=== PATIENT | female | born 1995 | race Caucasian/White ===

== ENCOUNTER 2020-08-28 17:43 | Outpatient (REF) | payer OTHER, SELFPAY | END 2020-08-28 17:44 | disposition home or self-care (01) | LOC: HO.LAB 17:43 | PROVIDERS: Visit Provider Internal Medicine | DX: Z20.828 Contact with and (suspected) exposure to other viral communicable diseases (principal) | CPT/HCPCS: C9803; U0003 ==

== ENCOUNTER 2023-07-05 08:46 | Emergency (ER) | payer OTHER, SELFPAY ==
[2023-07-05 09:04] VITALS: BP 117/75; PULSE 68; RESP 17; TEMP 36.4; O2SAT 100; BMI 24.4
--- NOTE | 2023-07-05 09:50 | ED_ITS ---
HPI - General Adult General Chief complaint: General Medical Stated complaint: Thyroid cancer-feels close to syncope Time Seen by Provider: 07/05/23 09:16 Source: patient Mode of arrival: ambulatory Limitations: no limitations History of Present Illness HPI narrative: Lightheaded and weak for the past week, today was worse. She had thyroidectomy for metastatic thyroid cancer Onset (ago): week(s) Severity: mild Related Data Allergies Allergy/AdvReac Type Severity Reaction Status Date / Time No Known Allergies Allergy Unverified 06/20/20 19:03 [No Known Allergies*] Review of Systems 2 Review of Systems: Yes all other systems are reviewed and are negative Neurologic: Denies Sensory deficit (Neuro) [facility] Past Medical History Medical History Sepsis Thyroid cancer Surgical History S/P thyroidectomy History of surgery on lower extremity Social History Social History Smoked in Last 30 Days: No Use of substances other than those prescribed or required for medical reasons: No Advance Directives: No Patient : No Physical Exam ED Vital Signs: Vital Signs - 24 hr 07/05/23 09:04 Temperature 97.6 F Pulse Rate 68 Respiratory Rate 17 Blood Pressure 117/75 Pulse Oximetry 100 Oxygen Delivery Method Room Air BMI result Body Mass Index 24.4 Const General: healthy appearing Nutritional Appearance: average body habitus Orientation/consciousness: oriented to person and patient oriented x3 Limitations: no limitations HENMT Head: Yes normal to inspection Ears: external ears normal General nose exam: Normal external nose present Mouth: Normal oral and palatal mucosa present and oropharynx normal Throat: Yes posterior oropharynx normal Eyes General: appearance normal, both eyes and all related structures Neck Neck: Yes normal visual inspection Chest Chest palpation & inspection: normal inspection of the chest Resp Auscultation: clear to auscultation bilaterally Cardio Jugular venous distension: no JVD Rate: regular rate Rhythm: regular rhythm Heart sounds: S1 normal heart sound present and S2 normal heart sound present GI Inspection: Yes normal to inspection Palpation (GI): Soft to palpation, nontender and No hepatosplenomegaly present Auscultation: normal bowel sounds General: Yes no CVA tenderness Back/Spine/Pelvis Back: no CVA tenderness Skin General skin exam: no rashes or lesions noted Neuro General: oriented to person and patient oriented x3 Cranial nerves: Yes CN's II-XII intact bilaterally Motor exam (neuro): 5/5 motor strength present throughout Sensory Exam: No Sensory deficit (Neuro) Extrem General: Yes normal to inspection Psych Appearance: grossly normal Course Reevaluation(s) Reevaluation #1: Patient severly hypothyroid. Will dc home for immediate follow up with endocrine Time: 11:05 Medications Administered Generic Name Dose Route Start Last Admin Trade Name Freq PRN Reason Stop Dose Admin Sodium Chloride 500 mls @ 250 mls/hr 07/05/23 10:00 07/05/23 10:07 Ns IVCONT 07/05/23 11:59 250 mls/hr .Q2H DAVID Administration Medical Decision Making Differential Diagnosis Differential Diagnoses: The differential diagnosis associated with the presentation includes (Hypocalcemia, hypomagnesemia, electrolyte disturbance, hypothyroidism) Admission/Observation Consideration of admission/observation: Escalation of care including admission/observation considered (upon arrival patient was considered for admission) Lab Data MDM Lab Attestation statement: I reviewed the patient's lab results. (of note was the very elevated TSH) 07/05/23 10:04 07/05/23 10:04 Labs: Lab Results 07/05/23 Range/Units 10:04 WBC 4.1 L (4.8-10.8) X10*3/uL RBC 4.70 (4.20-5.50) X10*6/uL Hgb 11.2 L (12.0-16.0) g/dl Hct 35.2 L (37.0-47.0) % MCV 74.9 L (80.0-98.0) fL MCH 23.8 L (27.0-33.0) pg MCHC 31.8 (31.0-35.0) g/dl RDW 14.5 (11.0-16.0) % Plt Count 144 L (160-400) X10*3/uL MPV 10.1 (9.4-12.3) fL Immature Gran % (Auto) 0.2 (0.0-0.4) % Neut % (Auto) 59.0 (45-73) % Lymph % (Auto) 33.8 (20-40) % [place] % (Auto) 5.8 (2-11) % Eos % (Auto) 0.7 (0-4) % Baso % (Auto) 0.5 (0-2) % Lymph # (Auto) 1.4 (1.2-4.9) X10*3/uL [place] # (Auto) 0.2 (0.1-1.2) X10*3/uL Eos # (Auto) 0.0 (0.0-0.4) X10*3/uL Baso # (Auto) 0.0 (0.0-0.2) X10*3/uL Abs Immat Gran (auto) 0.01 (0.00-0.03) X10*3/uL Absolute Neuts (auto) 2.4 (2.0-8.3) x10*3/uL Absolute Nucleated RBC 0.000 (0.0-0.012) X10*3/uL Nucleated RBC % (auto) 0.0 (0.0-0.2) /100WBC Sodium 141 (135-145) mmol/L Potassium 4.3 (3.3-5.1) mmol/L Chloride 109 H (96-108) mmol/L Carbon Dioxide 25 (22-29) mmol/L Anion Gap 11 L (12-20) BUN 13 (9-16) mg/dL Creatinine 0.87 (0.5-1.4) mg/dL Estim Creat Clear Calc 81.0 Estimated GFR > 60 Random Glucose 80 (60-115) mg/dL Calcium 9.3 (8.4-10.2) mg/dL Phosphorus 3.7 (2.7-4.5) mg/dL Magnesium 2.3 (1.6-2.6) mg/dL TSH 98.94 H (0.32-4.0) uIU/mL Prescription Management I considered prescription management with: Other (calcium replacement not indicated) Chronic Conditions Patient?s care impacted by: Cancer Discharge Plan Discharge Clinical Impression: Hypothyroidism Qualifiers: Hypothyroidism type: postoperative Qualified Code(s): E89.0 - Postprocedural hypothyroidism Patient Disposition: Home, Self-Care Instructions: Hypothyroidism (ED) Referrals: Rossy Morejon DO [Primary Care Provider] - 2 days
[2023-07-05] MEDS: 0.9 % Sodium Chloride 500 ML 250 ML IVCONT (10:07)
[2023-07-05 10:08] LABS: MANUAL DIFF FLAG NO
[2023-07-05 10:10] LABS: Basophils Percent Auto 0.5 % (0-2); Eosinophils Percent Auto 0.7 % (0-4); Hematocrit 35.2 % (37.0-47.0); Hemoglobin 11.2 g/dl (12.0-16.0); Imm Gran Abs Auto 0.01 X10*3/uL (0.00-0.03); Imm Gran Pct Auto 0.2 % (0.0-0.4); Lymphocytes Absolute Auto 1.4 X10*3/uL (1.2-4.9); Lymphocytes Percent Auto 33.8 % (20-40); Mean Corpuscular HGB Conc 31.8 g/dl (31.0-35.0); Mean Corpuscular Hemoglobin 23.8 pg (27.0-33.0); Mean Corpuscular Volume 74.9 fL (80.0-98.0); Mean Platelet Volume 10.1 fL (9.4-12.3); Monocytes Absolute Auto 0.2 X10*3/uL (0.1-1.2); Monocytes Percent Auto 5.8 % (2-11); Neutrophils Absolute Auto 2.4 x10*3/uL (2.0-8.3); Platelet Count 144 X10*3/uL (160-400); Red Cell Distribution Width 14.5 % (11.0-16.0); White Blood Count 4.1 X10*3/uL (4.8-10.8)
[2023-07-05 10:32] LABS: Anion Gap 11 (12-20); Blood Urea Nitrogen 13 mg/dL (9-16); Calcium 9.3 mg/dL (8.4-10.2); Carbon Dioxide 25 mmol/L (22-29); Chloride 109 mmol/L (96-108); Estimated Glomerular Filt Rate > 60; Glucose Random 80 mg/dL (60-115); Magnesium 2.3 mg/dL (1.6-2.6); Phosphorus 3.7 mg/dL (2.7-4.5); Potassium 4.3 mmol/L (3.3-5.1); Sodium 141 mmol/L (135-145)
[2023-07-05 10:46] LABS: TSH reflex Free T4 98.94 uIU/mL (0.32-4.0)
--- NOTE | 2023-07-05 10:50 | PC.NURSE ---
patient a&ox3,notably pale,iv inserted, labs drawn, air sampling and monitoring applied- pt nsr on monitor, pt c/o 11/13 eye pain- denies history of migraines, states she felt like she was spinning and felt faint while driving which brought her to this ed. pt medicated per order, call basurto within reach, will continue to monitor.
[2023-07-05 12:11] LABS: Free T4 (Free Thyroxine) 0.42 ng/dL (0.71-1.85)
== END 2023-07-05 11:43 | disposition home or self-care (01) ==
PROVIDERS: Emergency Provider Emergency Medicine; PCP Pediatrics
DX: E89.0 Postprocedural hypothyroidism (principal); R55 Syncope and collapse; R11.2 Nausea with vomiting, unspecified; Z79.899 Other long term (current) drug therapy
CPT/HCPCS: 36415; 80048; 83735; 84100; 84439; 84443; 85025; 96360; 96361; 99284

== ENCOUNTER 2023-08-17 08:42 | Emergency (ER) | payer OTHER, SELFPAY ==
[2023-08-17 08:47] VITALS: BP 118/85; PULSE 87; RESP 18; TEMP 36.6; O2SAT 98; BMI 23.8
[2023-08-17 09:09] VITALS: BP 112/81; PULSE 94; RESP 18; TEMP 36.6; O2SAT 100
--- NOTE | 2023-08-17 09:18 | ED_ITS ---
HPI - General Chief complaint: Vaginal Bleeding Stated complaint: Vag Bleed Light Headed 5-6 Wks Preg Time Seen by Provider: 08/17/23 09:06 Source: patient Mode of arrival: ambulatory Limitations: no limitations History of Present Illness HPI Narrative: Patient states she took a test it was positive 10 days ago. She started to bleed 4 days ago with passing clots, she then developed fever nausea and vomiting. Comes in today to get checked out, states that her bleeding has completely stopped Complaint: vaginal bleeding Onset (ago): day(s) Pain Consistency: now resolved Related Data Allergies Allergy/AdvReac Type Severity Reaction Status Date / Time No Known Allergies Allergy Verified 08/17/23 08:47 [No Known Allergies*] Review of Systems 2 Review of Systems: Yes all other systems are reviewed and are negative Neurologic: Denies Sensory deficit (Neuro) [facility] Past Medical History Medical History Sepsis Thyroid cancer Surgical History S/P thyroidectomy History of surgery on lower extremity Social History Social History Alcohol intake: former Smoked in Last 30 Days: No Use of substances other than those prescribed or required for medical reasons: No Advance Directives: Yes Advance Directives Information Provided: Yes Advance Directives on File: No Patient : Yes Physical Exam 2 Vital Signs: Vital Signs: Last Vital Signs Temp 97.8 F 08/17/23 09:09 Pulse 75 08/17/23 12:32 Resp 16 08/17/23 12:32 BP 101/72 08/17/23 12:32 Pulse Ox 100 08/17/23 12:32 O2 Del Method Room Air 08/17/23 12:32 BMI result Body Mass Index 23.8 Const: Other: very pale appearing Nutritional Appearance: average body habitus Orientation/consciousness: oriented to person and patient oriented x3 Limitations: no limitations HEENT: Head: Yes normal to inspection Ears: external ears normal General nose exam: Normal external nose present Mouth: Normal oral and palatal mucosa present and oropharynx normal Throat: Yes posterior oropharynx normal Eyes: Other: conjunctiva not pale General: appearance normal, both eyes and all related structures Neck: Other: supple Neck: Yes normal visual inspection Chest: Chest palpation & inspection: normal inspection of the chest Resp: Auscultation: clear to auscultation bilaterally Cardio: Jugular venous distension: no JVD Rate: regular rate Rhythm: r egular rhythm Heart sounds: S1 normal heart sound present and S2 normal heart sound present GI: Inspection: Yes normal to inspection Palpation (GI): Soft to palpation, nontender and No hepatosplenomegaly present Auscultation: normal bowel sounds : General: Yes no CVA tenderness Back/Spine/Pelvis: Back: no CVA tenderness Skin: General skin exam: no rashes or lesions noted Neuro: General: oriented to person and patient oriented x3 Cranial nerves: Yes CN's II-XII intact bilaterally Motor exam (neuro): 5/5 motor strength present throughout Sensory Exam: No Sensory deficit (Neuro) Extrem: General: Yes normal to inspection Psych: Appearance: grossly normal Course Reevaluation(s) Reevaluation #1: Patient states bleeding has stopped, HCG 595 will not perform US at this time will have patient follow up with PMD in 3 days and recheck HCG. No source of infection found Time: 10:19 Medications Administered Discontinued Medications Generic Name Dose Route Start Last Admin Trade Name Freq PRN Reason Stop Dose Admin Sodium Chloride 1,000 mls @ 500 mls/hr 08/17/23 09:30 08/17/23 12:18 Ns IVCONT 08/17/23 11:29 Infused .Q2H DAVID Infusion Ondansetron HCl 4 mg 08/17/23 09:16 08/17/23 09:41 Ondansetron Hcl 4 Mg/2 Ml Vial IVPUSH 08/17/23 09:17 4 mg ONCE ONE Administration Medical Decision Making Differential Diagnosis Differential Diagnoses: The differential diagnosis associated with the presentation includes (miscarriage, ectopic , UTI, fever) Admission/Observation Consideration of admission/observation: Escalation of care including admission/observation considered (upon arrival patient was considered for admission) Lab Data MDM Lab Attestation statement: I reviewed the patient's lab results. (anemia is her baseline, urine is contaminated) 08/17/23 09:24 08/17/23 09:28 Labs: Lab Results 08/17/23 08/17/23 08/17/23 Range/Units 09:18 09:24 09:28 WBC 4.6 L (4.8-10.8) X10*3/uL RBC 4.48 (4.20-5.50) X10*6/uL Hgb 10.7 L (12.0-16.0) g/dl Hct 33.4 L (37.0-47.0) % MCV 74.6 L (80.0-98.0) fL MCH 23.9 L (27.0-33.0) pg MCHC 32.0 (31.0-35.0) g/dl RDW 15.0 (11.0-16.0) % Plt Count 218 D (160-400) X10*3/uL MPV 8.9 L (9.4-12.3) fL Immature Gran % (Auto) 0.2 (0.0-0.4) % Neut % (Auto) 63.6 (45-73) % Lymph % (Auto) 31.5 (20-40) % [place] % (Auto) 3.9 (2-11) % Eos % (Auto) 0.4 (0-4) % Baso % (Auto) 0.4 (0-2) % Lymph # (Auto) 1.5 (1.2-4.9) X10*3/uL [place] # (Auto) 0.2 (0.1-1.2) X10*3/uL Eos # (Auto) 0.0 (0.0-0.4) X10*3/uL Baso # (Auto) 0.0 (0.0-0.2) X10*3/uL Abs Immat Gran (auto) 0.01 (0.00-0.03) X10*3/uL Absolute Neuts (auto) 3.0 (2.0-8.3) x10*3/uL Absolute Nucleated RBC 0.000 (0.0-0.012) X10*3/uL Nucleated RBC % (auto) 0.0 (0.0-0.2) /100WBC Sodium 138 (135-145) mmol/L Potassium 3.5 (3.3-5.1) mmol/L Chloride 105 (96-108) mmol/L Carbon Dioxide 26 (22-29) mmol/L Anion Gap 11 L (12-20) BUN 10 (9-16) mg/dL Creatinine 0.79 (0.5-1.4) mg/dL Estim Creat Clear Calc 89.3 Estimated GFR > 60 Random Glucose 111 (60-115) mg/dL Calcium 8.4 D (8.4-10.2) mg/dL Beta HCG, Quant 595 mIU/mL Urine Color Urine Appearance Urine pH (5.0-9.0) Ur Specific [place] (1.005-1.025) Urine Protein (Neg-Trace) mg/dL Urine Glucose (UA) (Negative) mg/dL Urine Ketones (Negative) mg/dL Urine Blood (Negative) Urine Nitrite (Negative) Ur Leukocyte Esterase (Negative) Urine RBC (0-2) /HPF Urine WBC (0-5) /HPF Ur Squamous Epith Cells (0-2) /HPF Urine Bacteria (None Seen) Hyaline Casts (0-2) /LPF Blood Type A Positive Antibody Screen NEGATIVE 08/17/23 Range/Units 11:19 WBC (4.8-10.8) X10*3/uL RBC (4.20-5.50) X10*6/uL Hgb (12.0-16.0) g/dl Hct (37.0-47.0) % MCV (80.0-98.0) fL MCH (27.0-33.0) pg MCHC (31.0-35.0) g/dl RDW (11.0-16.0) % Plt Count (160-400) X10*3/uL MPV (9.4-12.3) fL Immature Gran % (Auto) (0.0-0.4) % Neut % (Auto) (45-73) % Lymph % (Auto) (20-40) % [place] % (Auto) (2-11) % Eos % (Auto) (0-4) % Baso % (Auto) (0-2) % Lymph # (Auto) (1.2-4.9) X10*3/uL [place] # (Auto) (0.1-1.2) X10*3/uL Eos # (Auto) (0.0-0.4) X10*3/uL Baso # (Auto) (0.0-0.2) X10*3/uL Abs Immat Gran (auto) (0.00-0.03) X10*3/uL Absolute Neuts (auto) (2.0-8.3) x10*3/uL Absolute Nucleated RBC (0.0-0.012) X10*3/uL Nucleated RBC % (auto) (0.0-0.2) /100WBC Sodium (135-145) mmol/L Potassium (3.3-5.1) mmol/L Chloride (96-108) mmol/L Carbon Dioxide (22-29) mmol/L Anion Gap (12-20) BUN (9-16) mg/dL Creatinine (0.5-1.4) mg/dL Estim Creat Clear Calc Estimated GFR Random Glucose (60-115) mg/dL Calcium (8.4-10.2) mg/dL Beta HCG, Quant mIU/mL Urine Color Dark Yellow Urine Appearance Cloudy Urine pH 5.5 (5.0-9.0) Ur Specific [place] >= 1.030 H (1.005-1.025) Urine Protein Trace (Neg-Trace) mg/dL Urine Glucose (UA) Negative (Negative) mg/dL Urine Ketones Trace (Negative) mg/dL Urine Blood Large (3+) H (Negative) Urine Nitrite Negative (Negative) Ur Leukocyte Esterase Trace H (Negative) Urine RBC >20 H (0-2) /HPF Urine WBC 6-10 H (0-5) /HPF Ur Squamous Epith Cells 0-2 (0-2) /HPF Urine Bacteria None Seen (None Seen) Hyaline Casts 0-2 (0-2) /LPF Blood Type Antibody Screen Tests considered The following testing was considered but not selected: Pelvic Us is considered but HCG only 595 and the likelihood of seeing a viable with that low hcg is unlikely Prescription Management I considered prescription management with: Antibiotic (No uti, comtaminated sample) Chronic Conditions Patient?s care impacted by: Other (thyroid cancer) Discharge Plan Discharge Clinical Impression: Threatened Patient Disposition: Home, Self-Care Instructions: Threatened Miscarriage (ED) Additional Instructions: Must get a repeat blood HCG in 3 days Referrals: Rossy Morejon DO [Primary Care Provider] - 3 days
[2023-08-17 09:34] LABS: MANUAL DIFF FLAG NO
[2023-08-17 09:37] LABS: Basophils Percent Auto 0.4 % (0-2); Eosinophils Percent Auto 0.4 % (0-4); Hematocrit 33.4 % (37.0-47.0); Hemoglobin 10.7 g/dl (12.0-16.0); Imm Gran Abs Auto 0.01 X10*3/uL (0.00-0.03); Imm Gran Pct Auto 0.2 % (0.0-0.4); Lymphocytes Absolute Auto 1.5 X10*3/uL (1.2-4.9); Lymphocytes Percent Auto 31.5 % (20-40); Mean Corpuscular Hemoglobin 23.9 pg (27.0-33.0); Mean Corpuscular Volume 74.6 fL (80.0-98.0); Mean Platelet Volume 8.9 fL (9.4-12.3); Monocytes Absolute Auto 0.2 X10*3/uL (0.1-1.2); Monocytes Percent Auto 3.9 % (2-11); Neutrophils Percent Auto 63.6 % (45-73); Platelet Count 218 X10*3/uL (160-400); Red Blood Count 4.48 X10*6/uL (4.20-5.50); White Blood Count 4.6 X10*3/uL (4.8-10.8)
[2023-08-17] MEDS: ondansetron HCL 4 MG/2 ML VIAL IVPUSH (09:41)
[2023-08-17] MEDS: 0.9 % Sodium Chloride 1,000 ML 500 ML IVCONT (09:41)
--- NOTE | 2023-08-17 09:44 | PC.NURSE ---
Pt states she has been experiencing vaginal bleedings X's 1 week with associated N/V and lower abdominal pain. Pt states she is about 5-6 weeks ; is unplanned as pt is receiving radiation therapy for thyroid cancer. Incidentally, pt discovered during an appointment with oncologist ( test required before radiation therapy). Pt states she does have a hx of preeclampsia with previous . Initially when bleeding started, Pt states she was going through a bunch of pads ; currently, pt has only gone through 1 pad since this morning, which was completely saturated. Pt states she is experiencing 3/10 pain within lower abdomen. Pt is currently feeling nauseated; provider notified and orders placed.
[2023-08-17 09:49] LABS: Anion Gap 11 (12-20); Blood Urea Nitrogen 10 mg/dL (9-16); Calcium 8.4 mg/dL (8.4-10.2); Carbon Dioxide 26 mmol/L (22-29); Chloride 105 mmol/L (96-108); Creatinine Clr Calc Pharmacy 89.3; Estimated Glomerular Filt Rate > 60; Glucose Random 111 mg/dL (60-115); Potassium 3.5 mmol/L (3.3-5.1); Sodium 138 mmol/L (135-145)
[2023-08-17 09:57] LABS: HCG Quantitative 595 mIU/mL
[2023-08-17 10:30] VITALS: BP 101/61; PULSE 70; RESP 16; O2SAT 100
[2023-08-17 11:30] LABS: Appearance Urine Cloudy; Color Urine Dark Yellow; Glucose Urine UA Negative (Negative); Leukocyte Esterase Urine Trace (Negative); Nitrite Urine Negative (Negative); PH 5.5 (5.0-9.0); Specific Gravity - Urine >= 1.030 (1.005-1.025); UMIC TRIGGER UACC YES; Urine Blood Large (3+) (Negative); Urine Ketones Trace mg/dL (Negative); Urine Protein Trace mg/dL (Neg-Trace)
[2023-08-17 11:31] LABS: Bacteria Urine None Seen (None Seen); Hyaline Casts Urine 0-2 /LPF (0-2); RBC Urine >20 /HPF (0-2); Squamous Epithelial Cell Urine 0-2 /HPF (0-2); UACC Culture Trigger YES
[2023-08-17 12:32] VITALS: BP 101/72; PULSE 75; RESP 16; O2SAT 100
== END 2023-08-17 14:05 | disposition home or self-care (01) ==
PROVIDERS: Emergency Provider Emergency Medicine; PCP Pediatrics
DX: O20.0 Threatened abortion (principal); C73 Malignant neoplasm of thyroid gland; R10.30 Lower abdominal pain, unspecified; Z92.3 Personal history of irradiation
CPT/HCPCS: 36415; 80048; 81001; 84702; 85025; 86850; 86900; 86901; 87086; 87147; 96361; 96374; 99284; 99285; J2405

== ENCOUNTER 2023-11-30 12:36 | Inpatient (IN) | payer OTHER, SELFPAY ==
--- NOTE | ~2023-11-30 | CT_ITS ---
EXAMINATION: CT HEAD WITHOUT CONTRAST CLINICAL INFORMATION: Fall. Head trauma. COMPARISON: Previous head CT June 2017 TECHNIQUE: Contiguous axial imaging was performed from the skull base to vertex without intravenous administration of contrast. This CT examination was performed using dose optimization techniques as appropriate, variously including the following: *Automated exposure control *Adjustment of mA and/or kV according to patient size (this includes techniques or standardized protocols for targeted exams where dose is matched to indication/reason for exam; i.e. extremities or head) *Use of iterative reconstruction technique DLP: 548 mGy-cm FINDINGS: Stable probable arachnoid cyst adjacent to the right frontal lobe. There is no other evidence of an extra-axial collection. There is no evidence of intra or extra-axial hemorrhage. Ventricles and extra-axial CSF spaces are appropriate. Eller-white matter differentiation is normal. No mass, mass effect or infarct. Bone windows is normal. No skull fracture. Visualized paranasal sinuses, mastoid air cells and middle ears are clear. CT/CT head/brain wo IV con IMPRESSION: No acute findings.
--- NOTE | ~2023-11-30 | CT_ITS ---
EXAMINATION: CT CERVICAL SPINE WITHOUT CONTRAST CLINICAL INFORMATION: Fall. Neck pain. COMPARISON: None available. TECHNIQUE: Axial images through the cervical spine without IV contrast. Sagittal and coronal reconstructions on the technologist's workstation. This CT examination was performed using dose optimization techniques as appropriate, variously including the following: *Automated exposure control *Adjustment of mA and/or kV according to patient size (this includes techniques or standardized protocols for targeted exams where dose is matched to indication/reason for exam; i.e. extremities or head) *Use of iterative reconstruction technique DLP: 254 mGy-cm FINDINGS: Bone alignment is normal. No fracture or dislocation. Normal disc spaces. Prevertebral soft tissues are normal. Surgical clips in the right neck. The thyroid gland appears to have been removed. CT/CT cervical spine wo IV con IMPRESSION: No fracture or dislocation. Fleischner guidelines were followed.
--- NOTE | ~2023-11-30 | CT_ITS ---
EXAMINATION: CT ANGIOGRAM OF THE CHEST WITH AND WITHOUT CONTRAST (CT PULMONARY ANGIOGRAM FOR PE) CLINICAL INFORMATION: Reason for Exam syncope hx of malignancy COMPARISON: None available. TECHNIQUE: Prior to contrast administration, noncontrast localization images were obtained. Subsequently, multidetector volumetric imaging was performed from the thoracic inlet to below the diaphragms following the administration of 85 mL Omnipaque 350 intravenous contrast. No contrast reaction reported Sagittal, coronal, and MIP oblique sagittal reformatted images were obtained on the CT workstation, uploaded to PACS, and reviewed. This CT examination was performed using dose optimization techniques as appropriate, variously including the following: *Automated exposure control *Adjustment of mA and/or kV according to patient size (this includes techniques or standardized protocols for targeted exams where dose is matched to indication/reason for exam; i.e. extremities or head) *Use of iterative reconstruction technique Total exam dose-length product 255 mGy-cm FINDINGS: QUALITY OF STUDY/CONTRAST BOLUS: Satisfactory. PULMONARY ARTERIES: No pulmonary emboli. THORACIC AORTA: No aneurysm. LUNG: No focal consolidation, nodules or masses. PLEURA: No pleural effusion or pneumothorax. MEDIASTINUM: Normal heart size. No pericardial effusion. No hilar or mediastinal lymphadenopathy. No evidence of septal bowing or right heart strain. CORONARY ARTERY CALCIFICATION: None visualized on this study. CHEST WALL/AXILLA: No axillary or internal mammary lymphadenopathy. OSSEOUS STRUCTURES: No acute or suspicious osseous abnormality. UPPER ABDOMEN: Postsurgical changes from gastric sleeve. No reflux of contrast into the hepatic veins to suggest elevated right heart pressures. CT/CT angio chest PE protocol IMPRESSION: Unremarkable exam VTE: negative
--- NOTE | ~2023-11-30 | CT_ITS ---
EXAMINATION: CT ABDOMEN AND PELVIS WITH CONTRAST CLINICAL INFORMATION: Anemia. Rectal bleeding. Syncope. COMPARISON: Previous CT of the abdomen and pelvis February 2018 TECHNIQUE: Multidetector volumetric images were obtained from the superior aspect of the liver through the pubic symphysis following administration 85 mL of Omnipaque 350 intravenous contrast. Sagittal and coronal reformatted images were obtained on the technologist's workstation. Oral contrast: Yes This CT examination was performed using dose optimization techniques as appropriate, variously including the following: *Automated exposure control *Adjustment of mA and/or kV according to patient size (this includes techniques or standardized protocols for targeted exams where dose is matched to indication/reason for exam; i.e. extremities or head) *Use of iterative reconstruction technique DLP: 519 mGy-cm FINDINGS: LUNG BASES: The visualized lung bases are unremarkable. LIVER, GALLBLADDER, AND BILIARY TREE: The liver is normal in size, shape, and attenuation. No focal hepatic lesion or biliary ductal dilatation is present. The gallbladder is unremarkable with no evidence of radiopaque gallstones, gallbladder wall thickening, or obvious pericholecystic inflammatory changes. PANCREAS: Unremarkable. SPLEEN: Small 1 cm cyst in the anterior spleen. Upper normal spleen size measuring centimeters. ADRENAL GLANDS: Unremarkable. KIDNEYS AND URETERS: The kidneys are normal in size, shape, and attenuation. No hydronephrosis, hydroureter, or calculi seen. Small cyst in the lower pole right kidney. No imaging follow-up recommended. No perinephric stranding. BLADDER: Unremarkable. GASTROINTESTINAL TRACT: Postsurgical changes from gastric sleeve. The small and large bowel are unremarkable. The appendix is unremarkable. ABDOMINAL WALL: No significant hernia is appreciated. LYMPH NODES: Small, small bowel mesentery and retroperitoneal lymph nodes. No enlarged lymph nodes. VASCULAR: Unremarkable. PELVIC VISCERA: Unremarkable. There is trace fluid in the pelvis. OSSEOUS STRUCTURES: Unremarkable. CT/CT abdomen pelvis w IV con IMPRESSION: No acute findings. Postsurgical changes from gastric sleeve. Fleischner guidelines were followed.
[2023-11-30 12:44] VITALS: BP 144/105; PULSE 91; RESP 18; TEMP 37.1; O2SAT 100; BMI 21.8
--- NOTE | 2023-11-30 12:45 | ED_ITS ---
HPI - General Adult General Chief complaint: Fall Stated complaint: Syncope Time Seen by Provider: 11/30/23 13:45 Source: patient Mode of arrival: ambulatory Limitations: no limitations History of Present Illness HPI narrative: 28-year-old female history of thyroid cancer s/p total thyroidectomy ( currently being treated w/ radioactive iodine last tx 10/22 at [facility] [place] and currently on levothyroxine & liothyronine) presents with a multiple syncopal episodes over the past 3 days, patient reports she is having spontaneous syncopal episodes, she reports she was seen at [facility] where they told her that she was slightly anemic and her platelets were low. Patient also is complaining of head and neck pain status post syncopal episode with head strike and loss of consciousness. Headche diffuse and severe. Patient's last syncopal episode was this morning. She states that today she syncopized and also hit her head. Reports subjective fevers two days ago. She is not on blood thinners. Denies CP, sob, n/v/d, abd pain, weakness, dizziness Related Data Allergies Allergy/AdvReac Type Severity Reaction Status Date / Time No Known Allergies Allergy Verified 11/30/23 12:48 [No Known Allergies*] Review of Systems 2 Review of Systems: Yes all other systems are reviewed and are negative PMFSH Past Medical History Attestation statement: The following information was validated with the patient. Source: old records reviewed and nursing notes reviewed Medical History Sepsis Thyroid cancer Surgical History S/P thyroidectomy History of surgery on lower extremity Social History Social History Alcohol intake: never Smoked in Last 30 Days: No Use of substances other than those prescribed or required for medical reasons: No Advance Directives: No Physical Exam ED Vital Signs: Vital Signs - 24 hr 11/30/23 12:44 11/30/23 14:02 11/30/23 14:02 Temperature 98.8 F Pulse Rate 91 75 81 Respiratory Rate 18 18 16 Blood Pressure 144/105 H 137/97 H 137/97 H Pulse Oximetry 100 100 Oxygen Delivery Method Room Air Room Air BMI result Body Mass Index 21.8 vss Appearance: Alert.? Oriented X3.? No acute distress.? Head: Normocephalic, atraumatic, no step-offs or deformities Eyes: Pupils equal, round and reactive to light.? Neck: Normal inspection.? Neck supple.?+ pain w/ palpation of L sternocleidomastoid muscle with overlying abrasion however no erythema or warmth. Negative Kernig and Brudzinski CVS: Normal heart rate and rhythm.? Pulses normal.? Respiratory: No respiratory distress.? Breath sounds normal.? Abdomen: Soft and nontender.? Skin: Skin warm and dry.? Pale skin color.? Normal skin turgor.? Extremities: No lower extremity edema.? No calf ttp. 5/5 strength to bilateral upper and lower extremities Neuro: Oriented X 3.? No motor deficit.? No sensory deficit. CN 2-12 intact . Negative Romberg and pronator drift. Normal [id number], [id number]. Course Course Course Narrative: This is a rapid medical exam: Additional HPI, ROS, PE not included below will be deferred to primary provider. Patient is a 28-year-old female with thyroid CA presenting to the ED after syncopal episode today. Patient states she had a fever on Wednesday, yesterday had syncopal episode, went to [facility], was told she was anemic and had low platelets but was d/c'd home. States after discharge she had an additional syncopal episode today with another head strike. Also complaining of left lateral neck pain. She was just treated for thyroid CA with radioactive iodine 1 month ago, but was told by her MD that her thyroid levels were back to normal range. Patient appears very pale in triage. She did not have any transfusions yesterday. She denies any hematochezia or melena. Plan: EKG, labs Reevaluation(s) Reevaluation #1: CBC leukopenia with a microcytic anemia, platelets 151, chemistry no acute findings requiring intervention. OBS stool negative. Flu/COVID/RSV negative. I did request records from [facility] still pending. Ct head, chest, abd/ pelvis pending. Time: 15:28 Reevaluation #2: Sign out to Jose Guadalupe pending imaging. Time: 15:51 Medical Decision Making Medical Decision Making MDM Narrative: 28-year-old female presents with multiple syncopal episodes now complaining of head and neck pain due to head strike loss of consciousness. Not on blood thinners. Will have racing secretary try to obtain records from [facility] with patient consent. Physical exam pain w/ palpation of L sternocleidomastoid muscle with overlying abrasion however no erythema or warmth. However no overt meningeal signs. NIH stroke scale 0. History and physical exam concerning for syncope will rule out orthostatic hypotension, electrolyte abnormalities, anemia. Will rule out metabolic derangements. Unlikely ACS, dissection. PE will be rule out due to patient hx. PERSAUD likely concussion will rule out ICH. Unlikely stroke based off exam. Unlikely meningitis and encephalitis no meningial sings on exam neck pain likely secondary to fall, overlying abrasion and discomfort with palpation of left sternocleidomastoid muscle Plan at this time labs, imaging. Differential Diagnosis Differential Diagnoses: The differential diagnosis associated with the presentation includes History and physical exam concerning for syncope will rule out orthostatic hypotension, electrolyte abnormalities, anemia. Will rule out metabolic derangements. Unlikely ACS, dissection. PE will be rule out due to patient hx. PERSAUD likely concussion will rule out ICH. Unlikely stroke based off exam. Unlikely meningitis and encephalitis no meningial sings on exam neck pain likely secondary to fall, overlying abrasion and discomfort with palpation of left sternocleidomastoid muscle Admission/Observation Consideration of admission/observation: Escalation of care including admission/observation considered Lab Data [facility] Lab Attestation statement: I reviewed the patient's lab results. 11/30/23 13:25 11/30/23 13:25 Labs: Lab Results 11/30/23 11/30/23 11/30/23 Range/Units 13:25 14:27 14:28 WBC 3.0 L (4.8-10.8) X10*3/uL RBC 4.35 (4.20-5.50) X10*6/uL Hgb 9.2 L (12.0-16.0) g/dl Hct 30.0 L (37.0-47.0) % MCV 69.0 L (80.0-98.0) fL MCH 21.1 L (27.0-33.0) pg MCHC 30.7 L (31.0-35.0) g/dl RDW 15.0 (11.0-16.0) % Plt Count 151 L D (160-400) X10*3/uL MPV 9.8 (9.4-12.3) fL Immature Gran % (Auto) 0.0 (0.0-0.4) % Neut % (Auto) 60.8 (45-73) % Lymph % (Auto) 26.8 (20-40) % [place] % (Auto) 10.7 (2-11) % Eos % (Auto) 1.0 (0-4) % Baso % (Auto) 0.7 (0-2) % Lymph # (Auto) 0.8 L (1.2-4.9) X10*3/uL [place] # (Auto) 0.3 (0.1-1.2) X10*3/uL Eos # (Auto) 0.0 (0.0-0.4) X10*3/uL Baso # (Auto) 0.0 (0.0-0.2) X10*3/uL Abs Immat Gran (auto) 0.00 (0.00-0.03) X10*3/uL Absolute Neuts (auto) 1.8 L (2.0-8.3) x10*3/uL Absolute Nucleated RBC 0.000 (0.0-0.012) X10*3/uL Nucleated RBC % (auto) 0.0 (0.0-0.2) /100WBC Sodium 141 (135-145) mmol/L Potassium 3.9 (3.3-5.1) mmol/L Chloride 110 H (96-108) mmol/L Carbon Dioxide 26 (22-29) mmol/L Anion Gap 9 L (12-20) BUN 13 (9-16) mg/dL Creatinine 0.71 (0.5-1.4) mg/dL Estim Creat Clear Calc 111.4 Estimated GFR > 60 Random Glucose 99 (60-115) mg/dL Calcium 9.1 D (8.4-10.2) mg/dL Total Bilirubin 0.4 (0.0-1.0) mg/dL AST 20 (5-31) U/L ALT 20 (0-31) U/L Alkaline Phosphatase 62 (39-117) U/L Total Protein 7.5 (6.5-8.0) g/dL Albumin 4.3 (3.5-5.0) g/dL Stool Occult Blood NEGATIVE (NEGATIVE) Influenza Type A (PCR) NEGATIVE (Negative) Influenza Type B (PCR) NEGATIVE (Negative) RSV RNA Qual (PCR) NEGATIVE (Negative) SARS-CoV-2 RNA (RT-PCR) NEGATIVE (Negative) Blood Type A Positive Antibody Screen NEGATIVE Critical Care Time Critical Care Time Critical Care Time: Yes Total Critical Care Time: 45 Attestation: I attest to this time spent taking care of the patient, obtaining history, physical, reviewing labs, imaging, speaking to my attending Discharge Plan Discharge Clinical Impression: Syncope, Microcytic anemia, Neck pain Patient Disposition: Still a Patient
--- NOTE | 2023-11-30 12:56 | ECG_ITS ---
Test Reason : syncope Blood Pressure : / mmHG Vent. Rate : 085 BPM Atrial Rate : 085 BPM P-R Int : 142 ms QRS Dur : 084 ms QT Int : 366 ms P-R-T Axes : 061 065 039 degrees QTc Int : 435 ms Normal sinus rhythm with sinus arrhythmia Normal EKG When compared with ECG of 09-JUN-2017 02:35, No significant change was found Referred By: Karla Rubio Electronically Signed By:DOREEN MORTENSEN
[2023-11-30 13:28] LABS: MANUAL DIFF FLAG NO
[2023-11-30 13:33] LABS: Basophils Percent Auto 0.7 % (0-2); Hemoglobin 9.2 g/dl (12.0-16.0); Lymphocytes Absolute Auto 0.8 X10*3/uL (1.2-4.9); Lymphocytes Percent Auto 26.8 % (20-40); Mean Corpuscular HGB Conc 30.7 g/dl (31.0-35.0); Mean Corpuscular Hemoglobin 21.1 pg (27.0-33.0); Mean Platelet Volume 9.8 fL (9.4-12.3); Monocytes Absolute Auto 0.3 X10*3/uL (0.1-1.2); Monocytes Percent Auto 10.7 % (2-11); Neutrophils Absolute Auto 1.8 x10*3/uL (2.0-8.3); Neutrophils Percent Auto 60.8 % (45-73); Platelet Count 151 X10*3/uL (160-400); Red Blood Count 4.35 X10*6/uL (4.20-5.50)
[2023-11-30 13:47] LABS: Alanine Aminotransferase 20 U/L (0-31); Albumin Level 4.3 g/dL (3.5-5.0); Alkaline Phosphatase 62 U/L (39-117); Anion Gap 9 (12-20); Aspartate Amino Transferase 20 U/L (5-31); Bilirubin Total 0.4 mg/dL (0.0-1.0); Blood Urea Nitrogen 13 mg/dL (9-16); Calcium 9.1 mg/dL (8.4-10.2); Carbon Dioxide 26 mmol/L (22-29); Chloride 110 mmol/L (96-108); Creatinine Clr Calc Pharmacy 111.4; Estimated Glomerular Filt Rate > 60; Glucose Random 99 mg/dL (60-115); Potassium 3.9 mmol/L (3.3-5.1); Sodium 141 mmol/L (135-145); Total Protein 7.5 g/dL (6.5-8.0)
[2023-11-30 14:02] VITALS: BP 137/97; PULSE 75; PULSE 81; RESP 16; RESP 18; O2SAT 100
[2023-11-30 14:42] LABS: OBS Int Ctl Valid YES; OBS1 NEGATIVE (NEGATIVE)
[2023-11-30 15:20] LABS: Influenza A PCR NEGATIVE (Negative); Influenza B PCR NEGATIVE (Negative); Resp Syncy Virus RNA Qual PCR NEGATIVE (Negative); SARS COV2 PCR INHOUSE NEGATIVE (Negative)
[2023-11-30 16:14] LABS: HCG Quantitative < 2 mIU/mL
[2023-11-30] MEDS: iohexoL 350 MG/ML 100 ML INFUS..BTL IV (16:35)
[2023-11-30] MEDS: 0.9 % Sodium Chloride 1,000 ML 999 ML IV (17:01)
[2023-11-30 17:21] LABS: TSH reflex Free T4 0.85 uIU/mL (0.32-4.0)
[2023-11-30 17:25] VITALS: BP 112/75; PULSE 66; RESP 14; TEMP 36.9; O2SAT 100
--- NOTE | 2023-11-30 17:26 | PC.NURSE ---
Patient stand by assisted to BR, denies any dizziness or weakness. NS bolus started as ordered, patient resting quietly on stretcher at this time
[2023-11-30 17:28] VITALS: BP 123/85; PULSE 81
[2023-11-30 17:29] VITALS: BP 120/84; PULSE 82
--- NOTE | 2023-11-30 18:21 | PM.IMHP ---
History of Present Illness Date of Service: 11/30/23 Chief Complaint: Syncope 28-year-old with past medical history significant for gastric sleeve surgery, thyroid cancer status post total thyroidectomy currently receiving radioactive iodine last treatment at [facility] and currently on levothyroxine and liothyronine presented to [facility] due to an episode of syncope yesterday and of fall today according to patient she had fever few days ago without associated sinus pressure, headache, or dizziness, yesterday she was putting something in the microwave, felt hot and tingly and then heard a Bang and was found herself in bed, she sustained injury to left side of chin and neck, she went to [facility] Emergency room and was noted to have anemia and low platelet count but since she was feeling better she was discharged home today she stood up fast from bed, question felt lightheaded and fell next to bed, without loss of consciousness or head injury, she denied prodromal symptoms of chest pain or dizziness, she denies episodes of hematemesis, no melena, no heavy periods she has been eating fairly well with good appetite but has been told by several friends and family that she looks very pale, she was on iron supplements in the past, recently her thyroid medications has been adjusted due to elevated TSH currently on 200 mcg of levothyroxine and twice daily levothyroxine wean, denies illicit drug use no heavy caffeine intake, no smoking, no alcohol, in the emergency room blood work showed hemoglobin 9.2, hematocrit 30, platelet of 151, TSH of 85, blood sugar 99 sodium 141, potassium 3.9 patient underwent extensive imaging study CT head unremarkable, CT cervical spine showed no fractures or dislocation, CT abdomen and pelvis showed no acute findings, CTA chest, showed no PE, no aneurysm, no focal consolidation, nodule or masses, orthostatic blood pressure is stable but patient noted to have elevated heart rate with standing and pancytopenia will admit for close monitoring and treatment. Review of Systems Review of Systems: General no headache no dizziness . CVS no chest pain, no palpitation. Respiratory no cough, no sob. Gastrointestinal no nausea, no vomiting, no abdominal pain no urgency, no frequency, no heavy periods Musculoskeletal left neck pain with difficulty in extension All other system reviewed and negative [facility] Medical History Sepsis Thyroid cancer Pertinent family history: Patient not aware of biological father, mother is healthy and alive and has no medical issues Surgical History S/P thyroidectomy History of surgery on lower extremity Social History Alcohol intake: never Patient Tobacco Use Status: Never used Tobacco Smoked in Last 30 Days: No Use of substances other than those prescribed or required for medical reasons: No Advance Directives: No Meds Allergies Allergy/AdvReac Type Severity Reaction Status Date / Time No Known Allergies Allergy Verified 11/30/23 12:48 [No Known Allergies*] Active Medications: Current Medications Acetaminophen (Acetaminophen 325 Mg Tablet) 650 mg PO Q6H PRN PRN Reason: Pain, Mild (Pain Scale 1-3) Al Hydroxide/Mg Hydroxide (Magnesium Hydrox/Alum Hydrox 30 Ml Oral.Susp) 30 ml PO Q4H PRN PRN Reason: Heartburn/Nausea Benzonatate (Benzonatate 100 Mg Capsule) 100 mg PO TID PRN PRN Reason: Cough Ondansetron HCl (Ondansetron Hcl 4 Mg/2 Ml Vial) 4 mg IVPUSH Q8H PRN PRN Reason: Nausea and Vomiting Sodium Chloride (0.9 % Sodium Chloride Flush 3 Ml Syringe) 3 ml IVFLUSH [facility] Medications Medication Instructions Recorded Confirmed Last Taken Type cephalexin 500 mg capsule 500 mg PO BID 11/30/23 11/30/23 Unknown History etonogestrel 0.12 mg-ethinyl 1 vag ring vaginal QMONTH 11/30/23 11/30/23 Unknown History estradiol 0.015 mg/24 hr vaginal ring ibuprofen 800 mg tablet 800 mg PO Q8H PRN moderate pain 11/30/23 11/30/23 Unknown History levothyroxine 200 mcg tablet 200 mcg PO DAILY 11/30/23 11/30/23 11/30/23 History liothyronine 5 mcg tablet 5 mcg PO BID 11/30/23 11/30/23 11/30/23 History multivitamin 1 tab PO DAILY 11/30/23 11/30/23 11/30/23 History Physical Exam Vital Signs and Narrative: Vital Signs: Last Vital Signs Temp 98.5 F 11/30/23 17:25 Pulse 82 11/30/23 17:29 Resp 14 11/30/23 17:25 BP 120/84 11/30/23 17:29 Pulse Ox 100 11/30/23 17:25 O2 Del Method Room Air 11/30/23 17:25 BMI result Body Mass Index 21.8 Const: Other: General awake alert x3, sitting in bed,in no acute distress. Anicteric sclera Neck tenderness/bruise left sternocleidomastoid muscle with mild swelling CVS regular rate rhythm, Respiratory lungs clear to auscultation, no respiratory distress, no wheeze, no rhonchi. Gastrointestinal abdomen soft, non tender, bowel sounds audible, no guarding , no rigidity. Extremities no edema. Neuro non focal Skin pallor Psych appropriate affect Results Labs 12/01/23 05:24 11/30/23 13:25 Labs: Laboratory Results - last 24 hr 11/30/23 11/30/23 11/30/23 13:25 14:27 14:28 MCV 69.0 L MCH 21.1 L MCHC 30.7 L RDW 15.0 Plt Count 151 L D MPV 9.8 Immature Gran % (Auto) 0.0 Neut % (Auto) 60.8 Lymph % (Auto) 26.8 Towner % (Auto) 10.7 Eos % (Auto) 1.0 Baso % (Auto) 0.7 Lymph # (Auto) 0.8 L Towner # (Auto) 0.3 Eos # (Auto) 0.0 Baso # (Auto) 0.0 Abs Immat Gran (auto) 0.00 Absolute Neuts (auto) 1.8 L Absolute Nucleated RBC 0.000 Nucleated RBC % (auto) 0.0 Anion Gap 9 L Estim Creat Clear Calc 111.4 Estimated GFR > 60 Random Glucose 99 Calcium 9.1 D Total Bilirubin 0.4 AST 20 ALT 20 Alkaline Phosphatase 62 Total Protein 7.5 Albumin 4.3 TSH 0.85 Beta HCG, Quant < 2 Stool Occult Blood NEGATIVE Influenza Type A (PCR) NEGATIVE Influenza Type B (PCR) NEGATIVE RSV RNA Qual (PCR) NEGATIVE SARS-CoV-2 RNA (RT-PCR) NEGATIVE Blood Type A Positive Antibody Screen NEGATIVE Imaging Radiologist's Impressions: Impressions Abdomen/Pelvis CT 11/30/23 16:57 IMPRESSION: No acute findings. Postsurgical changes from gastric sleeve. Fleischner guidelines were followed. Cervical Spine CT 11/30/23 16:57 IMPRESSION: No fracture or dislocation. Fleischner guidelines were followed. Chest CTA 11/30/23 16:57 IMPRESSION: Unremarkable exam VTE: negative Head CT 11/30/23 16:57 IMPRESSION: No acute findings. Assessment and Plan (1) Microcytic anemia: Status: Acute (2) Syncope: Status: Acute Plan 28-year-old female patient with past medical history significant for thyroid cancer status post thyroidectomy, receiving radioactive iodine at [facility] presented to [facility] after a syncopal episode, and a fall. Syncope/fall Question etiology anemia/less likely pots no orthostasis symptoms/no arrhythmias on tele monitor Normal CT head, normal C-spine, normal CTA chest and abdomen and pelvis Normal renal function, no evidence of infection, normal electrolytes and liver function Give IV fluids, monitor CBC, tele monitoring Follow orthostatic blood pressures. Chronic Pancytopenia/microcytic anemia. Will check iron studies/ferritin/checks stool guaiac Obtain respiratory viral pathogen No evidence of active bleed Musculoskeletal neck pain due to fall and injury will use Tylenol and oxycodone avoid Motrin due to anemia. History of thyroid cancer status post thyroidectomy normal TSH continue home dose of Synthroid and levothyroxine Code status full code DVT prophylaxis compression boots In my clinical judgment patient need to night inpatient hospitalization due to syncope, pancytopenia requiring further workup and expert consultation. Quality Stroke Does the patient have a stroke diagnosis?: No VTE Prior VTE?: No VTE Risk Level:: Medical - moderate - high VTE Device Contraindication: N/A - Device Ordered VTE Drug Contraindication: Treatment Not Indicated
[2023-11-30 18:40] LABS: Iron 13 mcg/dL (30-160); Percent Iron Saturation 4 % (15-50); Total Iron Binding Capacity 353 mcg/dL (228-428); Unsaturated Iron Binding 340 ug/dL
[2023-11-30 19:00] LABS: Ferritin 18 ng/mL (10-122)
--- NOTE | 2023-11-30 19:00 | PHA.MEDREC ---
Addendum entered by Leena Garcia RPh 11/30/23 19:11: Patient will have family bring in liothyronine Original Note: Pharmacy Consult ? Medication Reconciliation Pharmacy has completed the medication reconciliation. Confirmed medications with patient. Reports that she has not yet picked up Cephalexin 600mg BID. I left on med rec as it was prescribed yesterday.
[2023-11-30 19:06] VITALS: BP 129/95; PULSE 72; RESP 16; O2SAT 100
--- NOTE | 2023-11-30 19:35 | PC.NURSE ---
Patient placed on continuous tele, awaiting bed assigment. Resting comfortably on stretcher at this time.
--- NOTE | 2023-11-30 19:59 | PC.NURSE ---
PT C/O ONGOING HEADACHE, BILAT EAR PAIN. ALSO HAS A SECOND GUAIAC ORDERED. PER HOSPITALIST, SECOND GUAIAC NOT NEEDED, WASHROOM OPERATOR TO BE ADDING OXY PRN TO RXS.
[2023-11-30] MEDS: oxyCODONE HCl Immed Release 5 MG TABLET PO (20:52)
[2023-11-30] MEDS: TiZANidine HCL 4 MG TABLET PO (21:26)
[2023-11-30] MEDS: Fluticasone Propionate Nasal 16 GM SPRAY 2 SPRAY NOSTRIL-B (21:26)
--- NOTE | 2023-11-30 23:30 | PC.NURSE ---
Pt ca&ox4, no signs of distress. Pt in bed resting comfortably. Plan of care ongoing.
[2023-12-01] VITALS (11 sets, daily range): BP systolic 96–113; BP diastolic 52–71; PULSE 58–76; RESP 12–20; TEMP 36.3–36.8; O2SAT 97–99; BMI 23.8
[2023-12-01] MEDS: 0.9 % Sodium Chloride Flush 3 ML SYRINGE IVFLUSH ×3 (00:50→20:52)
[2023-12-01 06:00] LABS: Hematocrit 26.5 % (37.0-47.0); Hemoglobin 7.9 g/dl (12.0-16.0); Mean Corpuscular HGB Conc 29.8 g/dl (31.0-35.0); Mean Corpuscular Hemoglobin 21.2 pg (27.0-33.0); Mean Corpuscular Volume 71.2 fL (80.0-98.0); Mean Platelet Volume 9.8 fL (9.4-12.3); Platelet Count 123 X10*3/uL (160-400); Red Blood Count 3.72 X10*6/uL (4.20-5.50); Red Cell Distribution Width 14.9 % (11.0-16.0)
--- NOTE | 2023-12-01 07:27 | PC.NURSE ---
pt resting in bed with nad, no complaints,
--- NOTE | 2023-12-01 09:27 | PC.NURSE ---
asked md miller if consent obtained butch kinsey for blood as none seen in patient chart
[2023-12-01 09:28] LABS: Adenovirus PCR Not Detected (Not Detect.); Bordetella parapertussis PCR Not Detected (Not Detect.); Bordetella pertussis PCR Not Detected (Not Detect.); Chlamydia pneumoniae PCR Not Detected (Not Detect.); Coronavirus 229E PCR Not Detected (Not Detect.); Coronavirus HKU1 PCR Not Detected (Not Detect.); Coronavirus NL63 PCR Not Detected (Not Detect.); Coronavirus OC43 PCR Not Detected (Not Detect.); Human metapneumovirus PCR Not Detected (Not Detect.); Influenza A PCR Not Detected (Not Detect.); Influenza B PCR Not Detected (Not Detect.); Mycoplasma pneumoniae PCR Not Detected (Not Detect.); Parainfluenza 1 PCR Not Detected (Not Detect.); Parainfluenza 2 PCR Not Detected (Not Detect.); Parainfluenza 3 PCR Not Detected (Not Detect.); Parainfluenza 4 PCR Not Detected (Not Detect.); RSV PCR Not Detected (Not Detect.); Rhino/Enterovirus PCR Not Detected (Not Detect.)
--- NOTE | 2023-12-01 09:30 | PC.NURSE ---
per md miller on her way to consent prior to blood- holding tx until then, md miller aware. called pharmacy to request 0900 meds not in pyxis- multiple.
--- NOTE | 2023-12-01 09:32 | PC.NURSE ---
pharmacy bringing down xanaflex and thyroid med- other med not at hospital, needs to bring home, pt made aware
--- NOTE | 2023-12-01 09:40 | MHC.CM.PN ---
Pt is independent, HCP discussed, form to be given. Her contact (father, Ck Lobo) and PCP; Darleen, confirmed, pt has transport home, DC plan is home, self care, CM to follow and assist with DC.
[2023-12-01] MEDS: Multivitamin TABLET 1 TAB PO (09:42)
[2023-12-01] MEDS: Fluticasone Propionate Nasal 16 GM SPRAY 2 SPRAY NOSTRIL-B (09:42)
[2023-12-01] MEDS: Levothyroxine Sodium 200 MCG TABLET PO (10:09)
[2023-12-01] MEDS: TiZANidine HCL 4 MG TABLET PO ×3 (10:09→20:49)
--- NOTE | 2023-12-01 10:32 | PC.NURSE ---
blood infusing on starting rate first 15 min- no distress. educated re sx of txn rxn- confirms understanding. consent in chart
--- NOTE | 2023-12-01 10:45 | HO.PM.IMPN ---
Subjective Subjective Date of Service: 12/01/23 Interval History: Offers no acute complaints mostly in bed since admission, being followed for syncope, denies lightheadedness, no dizziness, no chest pain, no palpitations, noted to have significant drop in hematocrit to 26.5 no active bleed noted, no hematemesis, no melena ,denies history of heavy periods, normal appetite. Review of Systems All other system reviewed and negative. Physical Exam Vital Signs: Vital Signs: Last Vital Signs Temp 98.1 F 12/01/23 10:38 Pulse 60 12/01/23 10:38 Resp 15 12/01/23 10:38 BP 105/69 12/01/23 10:38 Pulse Ox 97 12/01/23 09:19 O2 Del Method Room Air 12/01/23 09:19 BMI result Body Mass Index 21.8 Const: Other: General awake alert x3, sitting in bed,in no acute distress. Anicteric sclera Neck tenderness/bruise left sternocleidomastoid muscle with mild swelling improving. CVS regular rate rhythm, Respiratory lungs clear to auscultation, no respiratory distress, no wheeze, no rhonchi. Gastrointestinal abdomen soft, non tender, bowel sounds audible, no guarding , no rigidity. Extremities no edema. Neuro non focal Skin pallor Psych appropriate affect Objective Data Active Medications Acetaminophen (Acetaminophen 325 Mg Tablet) 650 mg PO Q6H PRN PRN Reason: Pain, Mild (Pain Scale 1-3) Al Hydroxide/Mg Hydroxide (Magnesium Hydrox/Alum Hydrox 30 Ml Oral.Susp) 30 ml PO Q4H PRN PRN Reason: Heartburn/Nausea Benzonatate (Benzonatate 100 Mg Capsule) 100 mg PO TID PRN PRN Reason: Cough Fluticasone Propionate (Fluticasone Propionate Nasal 16 Gm Haines) 2 spray NOSTRIL-B BID [facility] Last Admin: 12/01/23 09:42 Dose: 2 spray Documented By: HILARY Levothyroxine Sodium (Levothyroxine Sodium 200 Mcg Tablet) 200 mcg PO DAILY@0600 [facility] Last Admin: 12/01/23 10:09 Dose: 200 mcg Documented By: HILARY Multivitamins/Vitamin C (Multivitamin Tablet) 1 tab PO DAILY [facility] Last Admin: 12/01/23 09:42 Dose: 1 tab Documented By: HILARY Non-Formulary Medication (Liothyronine) 5 mcg PO BID [facility] Ondansetron HCl (Ondansetron Hcl 4 Mg/2 Ml Vial) 4 mg IVPUSH Q8H PRN PRN Reason: Nausea and Vomiting Oxycodone HCl (Oxycodone Hcl Immed Release 5 Mg Tablet) 5 mg PO Q6H PRN PRN Reason: Pain, Severe (Pain Scale 7-10) Last Admin: 11/30/23 20:52 Dose: 5 mg Documented By: MANNYTOBROOKLYN Sodium Chloride (0.9 % Sodium Chloride Flush 3 Ml Syringe) 3 ml IVFLUSH QSHIFT [facility] Last Admin: 12/01/23 09:42 Dose: Not Given Documented By: HILARY Non-Admin Reason: prev shift Tizanidine HCl (Tizanidine Hcl 4 Mg Tablet) 4 mg PO TID [facility] Last Admin: 12/01/23 10:09 Dose: 4 mg Documented By: HILARY Labs 12/01/23 05:24 11/30/23 13:25 Labs: Laboratory Results - last 24 hr 11/30/23 11/30/23 11/30/23 13:25 14:27 14:28 MCV 69.0 L MCH 21.1 L MCHC 30.7 L RDW 15.0 Plt Count 151 L D MPV 9.8 Immature Gran % (Auto) 0.0 Neut % (Auto) 60.8 Lymph % (Auto) 26.8 [place]aufman % (Auto) 10.7 Eos % (Auto) 1.0 Baso % (Auto) 0.7 Lymph # (Auto) 0.8 L [place]man # (Auto) 0.3 Eos # (Auto) 0.0 Baso # (Auto) 0.0 Abs Immat Gran (auto) 0.00 Absolute Neuts (auto) 1.8 L Absolute Nucleated RBC 0.000 Nucleated RBC % (auto) 0.0 Anion Gap 9 L Estim Creat Clear Calc 111.4 Estimated GFR > 60 Random Glucose 99 Calcium 9.1 D Iron 13 L TIBC 353 % Saturation 4 L Unsat Iron Binding 340 Ferritin 18 Total Bilirubin 0.4 AST 20 ALT 20 Alkaline Phosphatase 62 Total Protein 7.5 Albumin 4.3 TSH 0.85 Beta HCG, Quant < 2 Stool Occult Blood NEGATIVE Influenza Type A (PCR) NEGATIVE Influenza Type B (PCR) NEGATIVE RSV RNA Qual (PCR) NEGATIVE SARS-CoV-2 RNA (RT-PCR) NEGATIVE Blood Type A Positive Antibody Screen NEGATIVE Crossmatch See Detail 12/01/23 05:24 MCV 71.2 L MCH 21.2 L MCHC 29.8 L RDW 14.9 Plt Count 123 L MPV 9.8 Immature Gran % (Auto) Neut % (Auto) Lymph % (Auto) Kaufman % (Auto) Eos % (Auto) Baso % (Auto) Lymph # (Auto) Kaufman # (Auto) Eos # (Auto) Baso # (Auto) Abs Immat Gran (auto) Absolute Neuts (auto) Absolute Nucleated RBC 0.000 Nucleated RBC % (auto) 0.0 Anion Gap Estim Creat Clear Calc Estimated GFR Random Glucose Calcium Iron TIBC % Saturation Unsat Iron Binding Ferritin Total Bilirubin AST ALT Alkaline Phosphatase Total Protein Albumin TSH Beta HCG, Quant Stool Occult Blood Influenza Type A (PCR) Influenza Type B (PCR) RSV RNA Qual (PCR) SARS-CoV-2 RNA (RT-PCR) Blood Type Antibody Screen Crossmatch Assessment and Plan (1) Neck pain: Status: Acute (2) Microcytic anemia: Status: Acute (3) Syncope: Status: Acute Plan 28-year-old female patient with past medical history significant for thyroid cancer status post thyroidectomy, receiving radioactive iodine at [facility] presented to [facility] after a syncopal episode, and a fall. Syncope/fall Likely due to iron deficiency anemia due to malabsorption, no evidence of acute bleed , no arrhythmia on tele monitor, no history of seizure. Normal CT head, normal C-spine, normal CTA chest and abdomen and pelvis Normal renal function, no evidence of infection, normal electrolytes and liver function Normal orthostatic blood pressures, mild tachycardia. Acute on Chronic Pancytopenia/microcytic anemia. Iron studies consistent with iron deficiency anemia, stool guaiac negative , no acute blood loss noted, likely due to poor absorption, status post gastric sleeve surgery respiratory viral pathogen pending Will transfuse 1 unit of packed RBC, follow CBC, recommend to resume iron supplements. Outpatient Oncology follow-up Musculoskeletal neck pain due to fall and injury improving, continue Tylenol and oxycodone. History of thyroid cancer status post thyroidectomy normal TSH continue home dose of Synthroid and levothyroxine. Code status full code DVT prophylaxis compression boots In my clinical judgment patient need to continued inpatient hospitalization due to syncope, pancytopenia requiring blood transfusion. Quality Stroke Does the patient have a stroke diagnosis?: No VTE Prior VTE?: No VTE Risk Level:: Medical - moderate - high VTE Device Contraindication: N/A - Device Ordered VTE Drug Contraindication: Treatment Not Indicated
--- NOTE | 2023-12-01 11:22 | PC.NURSE ---
rn informed at this time pt has a bed- entering report.
--- NOTE | 2023-12-01 11:24 | PC.NURSE ---
report in by this rn,. charge account clerk lina notified
[2023-12-01 11:30] LABS: SARS-CoV-2 PCR Not Detected (Not Detect.)
[2023-12-01] MEDS: Acetaminophen 325 MG TABLET 650 MG PO (22:29)
[2023-12-02 04:00] VITALS: BP 105/65; PULSE 67; RESP 16; TEMP 37.1; O2SAT 98
[2023-12-02] MEDS: Levothyroxine Sodium 200 MCG TABLET PO (05:53)
[2023-12-02 06:57] LABS: Hematocrit 31.3 % (37.0-47.0); Mean Corpuscular HGB Conc 31.9 g/dl (31.0-35.0); Mean Corpuscular Hemoglobin 22.5 pg (27.0-33.0); Mean Corpuscular Volume 70.5 fL (80.0-98.0); Mean Platelet Volume 9.9 fL (9.4-12.3); Platelet Count 133 X10*3/uL (160-400); Red Blood Count 4.44 X10*6/uL (4.20-5.50); Red Cell Distribution Width 16.5 % (11.0-16.0); White Blood Count 3.6 X10*3/uL (4.8-10.8)
[2023-12-02 07:13] VITALS: BP 112/66; PULSE 70; RESP 20; TEMP 36.3; O2SAT 99
[2023-12-02] MEDS: Fluticasone Propionate Nasal 16 GM SPRAY 2 SPRAY NOSTRIL-B (08:58)
[2023-12-02] MEDS: TiZANidine HCL 4 MG TABLET PO (08:58)
[2023-12-02] MEDS: Iron Sucrose Complex 100 MG in 0.9 % Sodium Chloride 50 ML 220 MG IV (08:58)
[2023-12-02] MEDS: Multivitamin TABLET 1 TAB PO (08:58)
[2023-12-02] MEDS: 0.9 % Sodium Chloride Flush 3 ML SYRINGE IVFLUSH (08:59)
--- NOTE | 2023-12-02 09:36 | MHC.CM.PN ---
Pt has been medically cleared for DC, she will go home today via family transport, to self care.
--- NOTE | 2023-12-06 10:54 | P.DS_ITS ---
DS: Providers Provider Date of Service: 12/06/23 Date of admission: 11/30/23 18:18 Primary care physician: Rossy Morejon DO DS: Diagnosis Discharge Diagnosis (1) Neck pain: Status: Acute (2) Microcytic anemia: Status: Acute (3) Syncope: Status: Acute DS: Summary Hospital Course Hospital Course: Date of Service: 11/30/23 Chief Complaint: Syncope 28-year-old with past medical history significant for gastric sleeve surgery, thyroid cancer status post total thyroidectomy currently receiving radioactive iodine last treatment at [facility] and currently on levothyroxine and liothyronine presented to [facility] due to an episode of syncope yesterday and of fall today according to patient she had fever few days ago without associated sinus pressure, headache, or dizziness, yesterday she was putting something in the microwave, felt hot and tingly and then heard a Bang and was found herself in bed, she sustained injury to left side of chin and neck, she went to [facility] Emergency room and was noted to have anemia and low platelet count but since she was feeling better she was discharged home today she stood up fast from bed, question felt lightheaded and fell next to bed, without loss of consciousness or head injury, she denied prodromal symptoms of chest pain or dizziness, she denies episodes of hematemesis, no melena, no heavy periods she has been eating fairly well with good appetite but has been told by several friends and family that she looks very pale, she was on iron supplements in the past, recently her thyroid medications has been adjusted due to elevated TSH currently on 200 mcg of levothyroxine and twice daily levothyroxine wean, denies illicit drug use no heavy caffeine intake, no smoking, no alcohol, in the emergency room blood work showed hemoglobin 9.2, hematocrit 30, platelet of 151, TSH of 85, blood sugar 99 sodium 141, potassium 3.9 patient underwent extensive imaging study CT head unremarkable, CT cervical spine showed no fractures or dislocation, CT abdomen and pelvis showed no acute findings, CTA chest, showed no PE, no aneurysm, no focal consolidation, nodule or masses, orthostatic blood pressure is stable but patient noted to have elevated heart rate with standing and pancytopenia will admit for close monitoring and treatment. 28-year-old female patient with past medical history significant for thyroid cancer status post thyroidectomy, receiving radioactive iodine at [facility] presented to [facility] after a syncopal episode, and a fall. Syncope/fall likely due to symptomatic iron deficiency anemia likely due to malabsorption, noted to have no evidence of acute bleed , no arrhythmia on tele monitor, no history of seizure,Normal CT head, normal C-spine, normal CTA chest and abdomen and pelvis,Normal renal function, no evidence of infection, normal electrolytes and liver function,Normal orthostatic blood pressures, patient treated with 1 unit of packed RBC hematocrit improved receive 1 dose of IV iron and will discharge home on iron supplements recommend outpatient follow-up with oncologist Dr. Neumann. Acute on Chronic Pancytopenia/microcytic anemia. Stable hematocrit WBC and platelets no active bleeding noted, respiratory viral panel negative, recommend outpatient oncology follow-up. Musculoskeletal neck pain due to fall and injury recommend to continue Tylenol, pain significantly improved. History of thyroid cancer status post thyroidectomy normal TSH continue home dose of Synthroid and levothyroxine. Time Attestation Discharge Coordination Time: discharge time of ____ minutes Quality: Safe Use of Opioids Does Pt have an Active Cancer Diagnosis on the Problem List?: No Quality: Stroke Does the patient have a stroke diagnosis?: No Physical Exam Vital Signs: Vital Signs: Last Vital Signs Temp 97.3 F 12/02/23 07:13 Pulse 70 12/02/23 07:13 Resp 20 12/02/23 07:13 BP 112/66 12/02/23 07:13 Pulse Ox 99 12/02/23 07:13 O2 Del Method Room Air 12/02/23 07:13 BMI result Body Mass Index 23.8 Const: Other: General awake alert x3, sitting in bed,in no acute distress. Anicteric sclera Neck tenderness/bruise left sternocleidomastoid muscle with mild swelling improving. CVS regular rate rhythm, Respiratory lungs clear to auscultation, no respiratory distress, no wheeze, no rhonchi. Gastrointestinal abdomen soft, non tender, bowel sounds audible, no guarding , no rigidity. Extremities no edema. Neuro non focal Skin pallor Psych appropriate affect DS: Data Data Completed and Pending Completed studies during hospitalization [Text1]: Procedures Transfusion of Nonautologous Red Blood Cells into Peripheral Vein, Percutaneous Approach (11/30/23) Discharge Plan Discharge Anticipated Discharge Date/Time: 12/02/23 09:21 Patient Disposition: Home, Self-Care Discharge Diagnosis: Syncope Iron deficiency anemia Referrals: Rossy Morejon DO [Primary Care Provider] - 1 Week Discharge Medications: New ferrous sulfate 324 mg (65 mg iron) tablet,delayed release (DR/EC) 324 mg PO BID Qty: 60 0RF ascorbic acid (vitamin C) [Vitamin C] 250 mg tablet 250 mg PO BID Qty: 60 0RF Continued liothyronine 5 mcg tablet 5 mcg PO BID levothyroxine 200 mcg tablet 200 mcg PO DAILY etonogestrel-ethinyl estradiol 0.12-0.015 mg/24 hr ring 1 vag ring vaginal QMONTH multivitamin Tablet 1 tab PO DAILY Discontinued ibuprofen 800 mg tablet 800 mg PO Q8H PRN (Reason: moderate pain) cephalexin 500 mg capsule 500 mg PO BID Rx Instructions: x 5 days Discharge Orders: Discharge Order (Routine); Ordered 12/02/23 Ordered By: Gurwinder Alexander Diet: Advance to usual diet Activity on Discharge: As tolerated Stand Alone Forms: Patient Portal Discharge page Care Plan Goals: Syncope likely due to iron deficiency anemia Take iron supplement 1 tablet daily for 3 days with vitamin-C then increase to 1 tablet twice daily with vitamin-C, watch for constipation Health Concerns: Continue all home medications Plan of Treatment: Outpatient follow-up with primary care physician and global supply chain director Dr. Neumann call for appointment for continued monitoring and treatment for anemia Assessment: As above Discharge Date/Time: 12/02/23 10:29
== END 2023-12-02 10:29 | disposition home or self-care (01) | DRG 663 ==
LOC: HO.ED 15:52 → HO.EDOVER 18:45 → HO.IMC 12-01 10:18
PROVIDERS: Physician Assistant; Registered Nurse Emergency; Admitting Provider Hospitalist; Emergency Provider Emergency Medicine; PCP Pediatrics; Visit Provider Hospitalist
DX: D50.9 Iron deficiency anemia, unspecified (principal); D61.818 Other pancytopenia; K91.2 Postsurgical malabsorption, not elsewhere classified; C73 Malignant neoplasm of thyroid gland; M54.2 Cervicalgia; Y83.8 Other surgical procedures as the cause of abnormal reaction of the patient, or of later complication, without mention of misadventure at the time of the procedure; E89.0 Postprocedural hypothyroidism; Z20.822 Contact with and (suspected) exposure to COVID-19; Z98.84 Bariatric surgery status; Z79.890 Hormone replacement therapy; Z79.899 Other long term (current) drug therapy
CPT/HCPCS: 0241U; 36415; 70450; 71275; 72125; 74177; 80053; 82272; 82728; 83540; 84443; 84702; 85025; 85027; 86850; 86900; 86901; 86923; 87633; 93005; 99222; 99285; J1756; P9016; Q9967

== ENCOUNTER → 2023-11-30 12:56 | Outpatient (BNV) | payer OTHER, SELFPAY | PROVIDERS: Admitting Provider Hospitalist; Emergency Provider Emergency Medicine; PCP Pediatrics; Visit Provider Internal Medicine | DX: R55 Syncope and collapse (principal) | CPT/HCPCS: 93010 ==

== ENCOUNTER → 2023-11-30 18:18 | Outpatient (BNV) | payer OTHER, SELFPAY | PROVIDERS: Admitting Provider Hospitalist; Emergency Provider Emergency Medicine; PCP Pediatrics; Visit Provider Hospitalist | DX: R55 Syncope and collapse (principal); D61.818 Other pancytopenia; M54.2 Cervicalgia; D50.9 Iron deficiency anemia, unspecified | CPT/HCPCS: 99223; 99233; 99238 ==

== ENCOUNTER → 2024-01-13 14:00 | Outpatient (BNV) | payer OTHER, SELFPAY | PROVIDERS: PCP Pediatrics; Visit Provider Internal Medicine Medical Oncology | DX: D50.9 Iron deficiency anemia, unspecified (principal) | CPT/HCPCS: 99204 ==

== ENCOUNTER 2024-02-02 08:13 | Outpatient (AMB) | payer OTHER, SELFPAY ==
[2024-02-02 08:48] VITALS: BP 122/80; PULSE 85; TEMP 36.7; O2SAT 98; BMI 23.9
--- NOTE | 2024-02-02 08:48 | AM.OFFWIN_ITS ---
Intake Vital Signs 3 02/02/24 08:48 Height 5 ft 3 in Weight 135 lb BMI 23.9 BP 122/80 Blood Pressure Location Lt brachial Position Sitting Pulse 85 Pulse Source Pulse Oximeter Temp 98.0 F Temp Source Temporal Artery Scan Pulse Oximetry (%) 98 Oxygen Delivery Method Room Air Intake Visit Reasons: [employer]OUNT [employer]IST Fever, ear/neck pain -recently blood transf. Intake Note: pt is here today for fever ear neck pain and recently blood transfusion started 3 days ago Patient Tobacco Use Status: Never used Tobacco Allergies No Known Allergies [No Known Allergies*] Allergy (Verified 02/02/24 09:02) Do you need a note to return to daycare/school/sports/work: No HPI HPI Comments 2 History of Present Illness0 Details 28 y/o female patient who presents to [facility] in clinic with c/o fever, neck and ear pain x 3 days. C/o generalized Fatigue, malaise and weakness. S/p Thyroid CA with Thyrodectomy Jun 2023. Pt has been having Anemia of unknown origin - received Blood and Iron transfusions in December 2023. Pt also c/o Tooth/Gum abscess, painful. Her Dentist has no appointments available. [facility] Medical History Sepsis Thyroid cancer Surgical History S/P thyroidectomy History of surgery on lower extremity Family History (Updated 01/13/24 @ 14:17 by Anthony Quintanilla) Maternal Grandfather Prostate cancer Skin cancer Maternal Grandfather Lung cancer Maternal Grandmother Breast cancer Social History (Updated 01/13/24 @ 14:17 by Anthony Quintanilla) Household Members: Spouse and Children Housing: House Do you presently have visiting nurse or other home services: No Alcohol intake: never Patient Tobacco Use Status: Never used Tobacco service: No Current occupational status: employed Review of Systems Const All systems reviewed & are unremarkable except as noted in HPI and below Physical Exam Vital Signs: Last Vital Signs Temp 98.0 F 02/02/24 08:48 Pulse 85 02/02/24 08:48 BP 122/80 02/02/24 08:48 Pulse Ox 98 02/02/24 08:48 Oxygen Delivery Method Room Air 02/02/24 08:48 BMI result Body Mass Index 23.9 Const Other: Patient Appears pale and weak. General: no acute distress, lethargic and tired appearing Nutritional Appearance: thin Orientation/consciousness: patient oriented x3 and lethargic HEENT Head: Yes normocephalic Ears: external ears normal and TM's normal bilaterally General nose exam: Normal nasal mucous membranes and turbinates present Face and sinus: Yes sinuses nontender Mouth: moist mucous membranes Teeth and gingiva: gingiva abnormal (Small abscess right upper gum between teeth, red and tender) Teeth image: 2 1. Small abscess right upper gum between teeth, red and tender Throat: Yes posterior oropharynx normal Resp Effort & Inspection: normal respiratory effort and able to speak in complete sentences Auscultation: clear to auscultation bilaterally, no crackles, no rales, no rhonchi and no wheezes Cardio Rate: regular rate Rhythm: regular rhythm Neuro General: patient oriented x3, gait normal and moves all extremities Psych Speech and movement: Normal speech and movement present Assessment & Plan Assessment & Plan (1) Generalized weakness: Code(s): R53.1 - Weakness Plan: - Advised Emergency room visit - She might need Transfusions (2) Abscess of upper gingiva: Code(s): K05.219 - Aggressive periodontitis, localized, unspecified severity Plan: - Prescribed PCN - Advised to f/u with dentist Medications: New 2 penicillin V potassium 500 mg PO BID 5 days 10 tabs 0RF Tooth abscess K05.219 - Aggressive periodontitis, localized, unspecified severity Coding Level of Care Code New Pt Level 3 (30992) Diagnoses Generalized weakness R53.1 Abscess of upper gingiva K05.219 Time Spent (min) 15
== END 2024-02-02 09:23 | disposition home or self-care (01) ==
PROVIDERS: PCP Pediatrics; Visit Provider Nurse Practitioner Family
DX: R53.1 Weakness (principal); K05.219 Aggressive periodontitis, localized, unspecified severity
CPT/HCPCS: 99203

== ENCOUNTER 2024-09-01 13:13 | Emergency (ER) | payer OTHER, SELFPAY | END 2024-09-01 14:15 | disposition left against medical advice (07) | PROVIDERS: Emergency Provider Emergency Medicine; PCP Pediatrics | DX: R07.0 Pain in throat (principal) ==